=== PATIENT | female | born 1975 | race Caucasian/White ===

== ENCOUNTER 2021-02-09 07:10 | Day surgery (SDC) | payer OTHER, MEDICARE ==
[~2021-02-09] VITALS: Ht 170.2 cm; Wt 82.3 kg
[~2021-02-09 07:10] MED LIST: ADDERALL 10 MG10 MG PO; BYDUREON B2 MG/0.85 SQ; CYMBALTA60 MG PO; FERROUS GLUCON324 M2 PO; LAMICTAL100 MG PO; ONDANSETRON ODT8 MG PO; PRAZOSIN HCL2 MG PO; PROMETHAZINE HC25 M1 PO; SENNA8.6 MG PO; SEROQUEL100 MG PO; TRAZODONE HCL100 MG PO; TRULICITY1.5 MG/0.5 SQ
[2021-02-09] MEDS ORDERED: TRULICITY1.5 MG/0.5 (08:44)
--- NOTE | 2021-02-09 09:29 | NUR ---
02/09/21 0929 Nadine Paige 0992 PATIENT ARRIVES TO PACU UNRESPONSIVE TO VERBAL STIMULI. ORAL AIRWAY IN PLACE. RESP EVEN AND UNLABORED, OXYMASK AT 10 LITERS.
--- NOTE | 2021-02-09 11:15 | OR ---
[facility] [address] [place], [place] [address] Signed DATE OF OPERATION: 02/09/2021 SURGEON: Meron Kyle MD PREOPERATIVE DIAGNOSES: 1. Laparoscopic cholecystectomy, 2001. 2. Gastric sleeve, 2017. 3. Anemia with hemoglobin 11.5 and mean cell volume 74. 4. Epigastric and left upper quadrant abdominal pain. 5. Gastroesophageal reflux disease. 6. Irritable bowel syndrome with constipation and diarrhea. 7. Fecal incontinence. 8. Hemorrhoids. 9. Probable family with colon cancer or polyps. POSTOPERATIVE DIAGNOSES: 1. Gastric sleeve anatomy. 2. Small hiatal hernia. 3. Mild gastritis. 4. Moderate sigmoid diverticulosis with severe angulation at 20-22 cm. 5. Moderate internal hemorrhoids. PROCEDURES: 1. EGD with CLOtest and biopsies of the antrum. 2. Colonoscopy with random cold biopsies in the left and sigmoid colon. ESTIMATED BLOOD LOSS: None. INDICATIONS: Jenna is a 45-year-old female asked to see me for upper and lower endoscopy. She presents with the above-listed issues. She told me she has lost weight after the gastric sleeve procedure. She started at 270 pounds and is down to around 180 pounds. She also has to use senna intermittently for constipation. Yet, she also describes rapid transit with incontinence. Even with her weight loss, she still has significant sleep apnea and requires CPAP mask. In that regard, we did use our monitored anesthesia care today with good results. Her recent CT scan of the abdomen and pelvis was said to be negative. She also talked about a severe reaction to anesthesia when she lived in [place], [place]. Details of that are not entirely clear. Because she does have diarrhea at night, there is some concern for Crohn disease, but again recent CT scan was Electronically Signed By: MERON KYLE MD 02/09/21 1115 PATIENT NAME: JENNA JACKSON OPERATIVE REPORT DATE OF : 73 REPORT #: [id number] PHYSICIAN: MERON KYLE MD PCP: NANCY GATICA MD REPORT IS CONFIDENTIAL AND NOT TO BE RELEASED WITHOUT AUTHORIZATION [facility] [address] [place], [place] [address] Signed negative. In the office, I gave Jenna pamphlets on both upper and lower endoscopy. She understands to test quite well. There is risk including, but not limited to gas bloating, crampy abdominal pain, bleeding, perforation requiring surgery, and missed diagnosis. We also discussed the need for the monitored anesthesia care. She had expressed understanding and wished to proceed. PROCEDURE NOTE: Jenna was taken into our endoscopy suite and placed in a supine semi-recumbent position. She was given monitored anesthesia care with propofol. A bite block was utilized for the case. The adult gastroscope was introduced and advanced under direct visualization of camera out into the third portion of the duodenum. The duodenum and pyloric channel were unremarkable. She had some very mild irritation in her stomach. We therefore took a biopsy of the antrum for CLOtest as well as pathologic review. She has classic gastric sleeve anatomy with preservation of the antrum. We had just enough room to retroflex the scope and we could see the gastric sleeve dressing all the way up to the GE junction. We could also see the staple line. She appears to have just a very small hiatal hernia. It would be quite small. The scope was withdrawn up through the area of the GE junction, which was compliant without stricture. Really, no disruption to her Z-line. No Maradiaga's mucosa. No distal esophagitis. The middle and upper esophagus were unremarkable. After this, the gas was suctioned out and the gastroscope removed. Jenna tolerated her upper endoscopy quite well. Jenna was then rotated into the left lateral decubitus position. She was maintained on IV propofol per our nurse accountant supervisor. A digital rectal exam was performed and this was unremarkable. The adult colonoscope was then introduced and advanced under direct visualization of camera. She has a very severe angulation at around 20-22 cm. It actually took several minutes to get around this area of angulation. We even had to rotate the scope, which is a bit unusual. However, it was a short area of angulation and once we got through, the scope passed fairly readily right up to the cecum itself. Her prep was quite excellent. We could easily see the appendiceal orifice and the ileocecal valve. The scope was then slowly withdrawn. She does have moderate sigmoid diverticulosis, they are moderate in size, moderate in number, and scattered about. We went and took a biopsy of the left colon and sigmoid colon due the history of diarrhea. We came through the area of angulation and came down into the rectum. The rectum was unremarkable. Upon retroflexion of scope, she does have moderate internal hemorrhoids. After this, the gas was suctioned out and colonoscope removed. Jenna tolerated procedure quite well. RECOMMENDATIONS: I will see Jenna back in my office in 7 to 14 days to review her results. Electronically Signed By: MERON KYLE MD 02/09/21 1115 PATIENT NAME: JENNA JACKSON OPERATIVE REPORT DATE OF : 73 REPORT #: [id number] PHYSICIAN: MERON KYLE MD PCP: NANCY GATICA MD REPORT IS CONFIDENTIAL AND NOT TO BE RELEASED WITHOUT AUTHORIZATION [address] [place] [address] Signed Meron Kyle MD [facility] [place] /[id number] cc: MD Nancy Bennett MD Copies: MERON KYLE MD ~ Electronically Signed By: MERON KYLE MD 02/09/21 1115 PATIENT NAME: JENNA JACKSON OPERATIVE REPORT DATE OF : 73 REPORT #: [id number] PHYSICIAN: MERON KYLE MD PCP: NANCY GATICA MD REPORT IS CONFIDENTIAL AND NOT TO BE RELEASED WITHOUT AUTHORIZATION
--- NOTE | 2021-02-12 18:15 | PATH ---
[facility] [address] [place], [place] [address] Signed SPECIMEN(S): A ANTRUM/PYLORUS SPECIMEN(S): B COLON BIOPSY SPECIMEN SOURCE: A. ANTRUM/PYLORUS B. COLON BIOPSY CLINICAL HISTORY: Esophagogastroduodenoscopy, colonoscopy. Fecal incontinence, LUQ pain, epigastric pain, history of diarrhea. Postop: Mild gastritis, diverticulosis, internal hemorrhoids. MICROSCOPIC DESCRIPTION: Histologic sections of all submitted blocks are examined by light microscopy. These findings, together with the gross examination, support the pathologic diagnosis. FINAL PATHOLOGIC DIAGNOSIS: A. Stomach, antrum/pylorus, biopsy: - Antral mucosa with chronic, inactive gastritis. - Negative for Helicobacter organisms on HE stain. - Negative for dysplasia or malignancy. B. Colon, biopsy: - Colonic mucosa with no histopathologic abnormality. - Negative for active, chronic, or microscopic colitis. - Negative for dysplasia or malignancy. NAL:cml:C2NR GROSS DESCRIPTION: Two specimens are received in two containers labeled with "KP." A. The specimen, labeled "KP, 1," and designated on the requisition "antrum/pylorus biopsy," is received in formalin and consists of one fragment of pink-martinez tissue (0.7 x 0.2 x 0.1 cm). The specimen is submitted entirely in cassette (A1). B. The specimen, labeled "KP, 2," and designated on the requisition "random colon biopsy," is received in formalin and consists of two fragments of pink-martinez tissue (0.5 x 0.2 x 0.2 cm in aggregate). The specimen is submitted entirely in cassette (B1). AC (under the direct supervision of a pathologist) The Gross Description was prepared using a voice recognition system. The report was reviewed for accuracy; however, sound-alike word errors, addition and/or deletions may occur. If there is any PATIENT NAME: JENNA JACKSON PATHOLOGY DATE OF : 73 REPORT #: [id number] PHYSICIAN: EWELINA PATHOLOGY PCP: BENJAMIN GATICA MD REPORT IS CONFIDENTIAL AND NOT TO BE RELEASED WITHOUT AUTHORIZATION [facility] [address] [place], [place] [address] Signed question about this report, please contact Client Services. PERFORMING LABORATORY: The technical component was performed by [facility] [address] [address] (Guest Relations Receptionist: Azul Bolivar MD; CLIA# [id number]). Professional interpretation was performed by [facility], [address] [address] (CLIA# [id number]). Diagnostician: Milka Dave MD Pathologist Electronically Signed 02/12/2021 Copies: ~ PATIENT NAME: JENNA JACKSON PATHOLOGY DATE OF : 73 REPORT #: [id number] PHYSICIAN: EWELINA MARIANO PCP: BENJAMIN GATICA MD REPORT IS CONFIDENTIAL AND NOT TO BE RELEASED WITHOUT AUTHORIZATION
== END 2021-02-09 10:05 | disposition home or self-care (01) ==
LOC: OPS 07:10 → DS 07:10 → OPS 09:00 → DS 09:15 → OPS 10:05 → DS 02-23 07:00
PROVIDERS: ATTEND Colon & Rectal Surgery
PROC: 0DBN8ZX Excision of Sigmoid Colon, Via Natural or Artificial Opening Endoscopic, Diagnostic (ICD-10-PCS; principal; 2021-02-09 08:00)
DX: K29.70 Gastritis, unspecified, without bleeding (principal); K58.2 Mixed irritable bowel syndrome; K57.30 Diverticulosis of large intestine without perforation or abscess without bleeding; K44.9 Diaphragmatic hernia without obstruction or gangrene; K64.8 Other hemorrhoids; R15.9 Full incontinence of feces; E11.43 Type 2 diabetes mellitus with diabetic autonomic (poly)neuropathy; K31.84 Gastroparesis; D64.9 Anemia, unspecified; G47.33 Obstructive sleep apnea (adult) (pediatric); Z98.84 Bariatric surgery status; Z99.89 Dependence on other enabling machines and devices; Z85.828 Personal history of other malignant neoplasm of skin
CPT/HCPCS: 86677; J2704; J7121